=== PATIENT | male | born 1940 | race Hispanic/Latino ===

== ENCOUNTER 2016-10-20 07:39 | Day surgery (SDC) | payer MEDICARE ==
[2016-10-20 08:07] VITALS: BMI 27.6
--- NOTE | 2016-10-20 08:55 | CP.SDSHP ---
Same Day Surgery H & P - History Proposed Procedure: Colonoscopy Pre-Op Diagnosis: Personal history of colon polyps - Previous Medical/Surgical History Cardiac: Hypertension, Arrhythmia Endocrine/Metabolic: Diabetes Comments: Atrial fibrillation Previous Surgical History: Parotid gland, right ankle - Allergies Allergies: Allergies No Known Allergies Allergy (Verified 10/20/16 08:03) - Current Medications Current Medications: See reconciliation sheet - Physical Exam General Appearance: WD WN male in NAD Vital Signs: Vital Signs 10/20/16 08:07 Temperature 97.3 F L Pulse Rate 80 Respiratory 20 Rate Blood Pressure 124/71 O2 Sat by Pulse 100 Oximetry Mental Status: Alert & Oriented x3 Neuro: WNL Heart: WNL Lungs: WNL GI: WNL - {Optional Preform as Required} Abdomen: WNL - Impression Impression: Personal history of colon polyps Pt. Evaluated Today:Candidate for Anesthesia & Procedure: Yes - Date & Time Date: 10/20/16 Time: 08:55 Short Stay Discharge - Short Stay Discharge Admitting Diagnosis/Reason for Visit: PERSONAL HISTORY OF COLON POLYPS Disposition: HOME/ ROUTINE
[2016-10-20] MEDS ORDERED: Propofol 10 mg/ml Inj (20 ML) ONE ×2 (08:58→09:01)
[2016-10-20] MEDS ORDERED: Lactated Ringer's 1,000 ML IV SCH (09:30)
[2016-10-20 09:52] VITALS: RESP 18
[2016-10-20 10:53] VITALS: BP 122/66; PULSE 67; TEMP 98; O2SAT 97
== END 2016-10-20 10:45 | disposition home or self-care (01) ==
LOC: C.ENDO 07:39
PROVIDERS: ATTEND Internal Medicine Gastroenterology
DX: D12.5 Benign neoplasm of sigmoid colon (principal); D12.3 Benign neoplasm of transverse colon; D12.2 Benign neoplasm of ascending colon; K62.1 Rectal polyp; K57.30 Diverticulosis of large intestine without perforation or abscess without bleeding; E11.9 Type 2 diabetes mellitus without complications; I10 Essential (primary) hypertension
CPT/HCPCS: 45380; 45385; 82948; 88305; J2704; J3010; J7120